=== PATIENT | female | born 1985 | race Caucasian/White ===

== ENCOUNTER → 2019-01-29 14:38 | Outpatient (CLI) | payer BC, SELFPAY ==
--- NOTE | 2019-01-29 | DI.US.S_ITS ---
ULTRASOUND OF LEFT BREAST: 01/29/2019 CLINICAL: Palpable left breast lump by physician. Comparison is made to exam dated: 01/29/2019 [facility]. Real-time ultrasound of the left breast was performed. Amanda scale images of the real-time examination were reviewed. No significant abnormalities were seen sonographically in the left breast. IMPRESSION: NEGATIVE There is no sonographic evidence of malignancy. There are no abnormalities seen in the left breast to correspond with the areas of clinical concern and palpable abnormalities at 3 o'clock and 9 o'clock which likely represent normal fibroglandular tissue, however, clinical followup is recommended for persistent symptoms. Recommend starting screening mammography at age 40. This exam was interpreted at Station ID: [id number]. Electronically Signed By: Omid Hawkins M.D. aty/:01/31/2019 08:00:12 Ultrasound BI-RADS: 1 Negative
--- NOTE | 2019-01-29 | DI.US.S_ITS ---
ULTRASOUND OF RIGHT BREAST: 01/29/2019 CLINICAL: Palpable right breast lump by physician. Comparison is made to exam dated: 01/29/2019 [facility]. Real-time ultrasound of the right breast was performed. Amanda scale images of the real-time examination were reviewed. No significant abnormalities were seen sonographically in the right breast. IMPRESSION: NEGATIVE There is no sonographic evidence of malignancy. There are no abnormalities seen in the right breast to correspond with the areas of clinical concern and palpable abnormalities at 3 o'clock and 9 o'clock which is consistent with normal fibroglandular tissue, however, clinical followup is recommended for persistent symptoms. Recommend starting screening mammograms at age 40. This exam was interpreted at Station ID: [id number]. Electronically Signed By: Omid Hawkins M.D. aty/:01/31/2019 07:59:45 Ultrasound BI-RADS: 1 Negative
--- NOTE | 2019-01-29 | DI.MG.S_ITS ---
BILATERAL DIGITAL DIAGNOSTIC MAMMOGRAM 3D/2D: 01/29/2019 CLINICAL: Bilateral lumps. Baseline exam. No prior exams were available for comparison. The tissue of both breasts is heterogeneously dense. This may lower the sensitivity of mammography. No significant masses, calcifications, or other findings are seen in either breast. IMPRESSION: INCOMPLETE: NEEDS ADDITIONAL IMAGING EVALUATION There is no abnormality seen in the right breast to correspond with the area of clinical concern and palpable abnormality at 3 o'clock, however, ultrasound is recommended for further evaluation. There is no abnormality seen in the left breast to correspond with the area of clinical concern and palpable abnormality at 9 o'clock, however, ultrasound is recommended for further evaluation. The recommended ultrasound is scheduled to immediately follow this examination. This exam was interpreted at Station ID: [id number]. NOTE: For mammograms, a report in lay terms will be sent to the patient. Approximately 15% of breast malignancies will not be visualized mammographically. In the management of a palpable breast mass, a negative mammogram must not discourage biopsy of a clinically suspicious lesion. Electronically Signed By: Omid Hawkins M.D. aty/:01/29/2019 15:21:59 ACR BI-RADS Category 0: Incomplete 3340F
== END ==
PROVIDERS: Family Provider Family Medicine; PCP Family Medicine; Visit Provider Internal Medicine
DX: R92.8 Other abnormal and inconclusive findings on diagnostic imaging of breast (principal); N63.15 Unspecified lump in the right breast, overlapping quadrants; N63.25 Unspecified lump in the left breast, overlapping quadrants
CPT/HCPCS: 76642; 77066; G0279

== ENCOUNTER 2022-05-08 10:08 | Emergency (ER) | payer BC, SELFPAY ==
[2022-05-08 10:21] VITALS: BP 138/71; PULSE 94; RESP 17; TEMP 36.6; O2SAT 98; BMI 32.4
--- NOTE | 2022-05-08 10:35 | ED.WOUNDLAC ---
HPI - Wound/Laceration General Chief Complaint: Wound/Laceration Stated Complaint: infected hair follicle on upper lt leg Time Seen by Provider: 05/08/22 10:25 Source: patient Mode of arrival: Ambulatory Limitations: no limitations History of Present Illness HPI narrative: 36-year-old female who has had multiple issues with abscesses in the past requiring drainage who is here for evaluation of approximately 1 week of 2 abscesses on the posterior aspect of her left thigh. She has been on antibiotics since yesterday morning. Is on doxycycline and also Keflex. She states she was re-evaluated by a doctor friend of hers earlier in the day who advised that she come to the emergency department for a drainage. Related Data Home Medications Medication Instructions Recorded Confirmed bupropion HCl 150 mg tablet,12 hr 150 mg PO BID 05/08/22 05/08/22 sustained-release cephalexin 500 mg capsule 500 mg PO DAILY 05/08/22 05/08/22 dextroamphetamine-amphetamine ER 30 mg PO DAILY 05/08/22 05/08/22 30 mg 24hr capsule,extend release (Adderall XR) doxycycline hyclate 100 mg capsule 100 mg PO DAILY 05/08/22 05/08/22 escitalopram oxalate 20 mg tablet 20 mg PO DAILY 05/08/22 05/08/22 Allergies Allergy/AdvReac Type Severity Reaction Status Date / Time No Known Allergies Allergy Uncoded 05/08/22 10:25 Review of Systems Musculoskeletal Musculoskeletal: Reports system reviewed and no additional complaints, except as documented Integumentary/Breasts Skin/Breast: Reports system reviewed and no additional complaints, except as documented Neurologic Neurologic: Reports system reviewed and no additional complaints, except as documented Patient History Social History Smoking Status: Never smoker Smoking Status: Never smoker alcohol intake frequency: other Substance Use Type: does not use Exam Initial Vital Signs Initial Vital Signs: Vital Signs Temperature 97.8 F 05/08/22 10:21 Pulse Rate 94 H 05/08/22 10:21 Respiratory Rate 17 05/08/22 10:21 Blood Pressure 138/71 05/08/22 10:21 Pulse Oximetry 98 05/08/22 10:21 Oxygen Delivery Method Room Air 05/08/22 10:21 Skin Other: One area of induration on the superior lateral aspect of the left posterior thigh. Proximally 4 cm with erythema and a small underlying area of ulceration in the center. She has a larger area that is approximately 20 cm x 20 cm of induration and swelling with a larger 1.5 x 1.5 area of ulceration in the center this. There is drainage from the area. Extrem Other: Swelling posterior aspect of left thigh Procedures Abscess I/D I&D #1: Site: lower extremity Side (if applicable): left Local Anesthetic: lidocaine 1% and with epi Amount of anesthesia used (mL): 5 Technique: incised with #11 blade Irrigation: No Packing used?: none Complications: pain Course Vital Signs Vital signs: Vital Signs - 8 hr 05/08/22 10:21 Temperature 97.8 F Pulse Rate 94 H Respiratory Rate 17 Blood Pressure 138/71 Pulse Oximetry 98 Oxygen Delivery Method Room Air MDM - Wound/Laceration MDM Narrative Medical decision making narrative: Bedside ultrasound showed a very small pocket of abscess on the larger of the 2 abscesses. The patient states that it has been draining. An incision was made to open this up further so that will not closed. A very small amount of purulent material returned. The other area in question did not have a underlying abscess but definitely had an area of cellulitis. Patient is on appropriate antibiotics. She was given care instructions and return precautions. She expressed understanding and agreement. Discharge Plan Departure Patient Disposition: Home Clinical Impression: Abscess, Cellulitis Instructions: Incision and Drainage of a Skin Abscess Activity Restrictions/Additional Instructions: Recommend that you continue to take all of your medications as directed to include the antibiotics that you have already been prescribed. Expect some drainage from the area that was cut open today. Return to the emergency department for any new or worsening symptoms like we discussed. Prescriptions: No Action bupropion HCl 150 mg tablet sustained-release 12 hr 150 mg PO BID Patient Comments: Take 1 tablet by mouth twice a day doxycycline hyclate 100 mg capsule 100 mg PO DAILY cephalexin 500 mg capsule 500 mg PO DAILY dextroamphetamine-amphetamine [Adderall XR] 30 mg capsule,extended release 24hr 30 mg PO DAILY Patient Comments: Take 1 capsule by mouth once a day escitalopram oxalate 20 mg tablet 20 mg PO DAILY Referrals: Trevor Fernando MD [Primary Care Provider] - Stand Alone Forms: Patient Portal/API
--- NOTE | 2022-05-08 11:16 | PC.NURSE ---
I&D performed by Dr. Velez
== END 2022-05-08 11:17 | disposition home or self-care (01) ==
PROVIDERS: Emergency Provider Emergency Medicine; Family Provider Family Medicine; PCP Family Medicine
DX: L02.416 Cutaneous abscess of left lower limb (principal); L03.116 Cellulitis of left lower limb
CPT/HCPCS: 10060; 99281; 99282

== ENCOUNTER 2022-06-25 23:35 | Emergency (ER) | payer OTHER, SELFPAY ==
[2022-06-25 23:40] VITALS: BP 129/79; PULSE 86; RESP 18; TEMP 37.2; O2SAT 99; BMI 32.4
--- NOTE | 2022-06-26 00:47 | ED.HEATRA ---
HPI - Head Injury General Chief complaint: Head Injury Stated complaint: Hit head on Sunday and swollen forehead Time Seen by Provider: 06/25/22 23:51 Source: patient Mode of arrival: Ambulatory History of Present Illness HPI Narrative: 37-year-old female nonsmoker with noncontributory medical history presents for evaluation of an infected wound on her forehead. She states that on Sunday night she was working in the garage when she struck her forehead on the corner of a metallic cabinet and suffered a small laceration. She did not lose consciousness and has had no nausea or vomiting. She is had no fever or chills. She denies any blurred vision or trouble with speech. Over the past few days she is developed some mild paraspinal neck pain but no midline tenderness. No radiation of pain into her upper extremities. No numbness, tingling or weakness. No chest pain or shortness of breath. She had a small amount of purulent drainage from the wound yesterday and over the course of the day today she developed some increased swelling between her eyebrows. She has friends that are in the healthcare field who saw and evaluated her and she has prescriptions for Bactrim and Keflex. She is taken 1 dose of Bactrim into of the Keflex. She consulted with her friends who stated because it looked a bit worse than had earlier that she should come to be checked out. Related Data Home Medications Medication Instructions Recorded Confirmed bupropion HCl 150 mg tablet,12 hr 150 mg PO BID 05/08/22 05/08/22 sustained-release cephalexin 500 mg capsule 500 mg PO DAILY 05/08/22 05/08/22 dextroamphetamine-amphetamine ER 30 mg PO DAILY 05/08/22 05/08/22 30 mg 24hr capsule,extend release (Adderall XR) doxycycline hyclate 100 mg capsule 100 mg PO DAILY 05/08/22 05/08/22 escitalopram oxalate 20 mg tablet 20 mg PO DAILY 05/08/22 05/08/22 Allergies Allergy/AdvReac Type Severity Reaction Status Date / Time No Known Allergies Allergy Uncoded 05/08/22 10:25 Review of Systems Review of Systems Narrative: GENERAL: Denies chills, fatigue, malaise, fever, sweats. HEENT: Denies sinus pain, ear pain, sore throat, difficulty swallowing, dizziness. RESPIRATORY: Denies dyspnea, cough, wheezing, hemoptysis, sputum. CARDIOVASCULAR: Denies chest pain, palpitations, orthopnea, edema, GASTROINTESTINAL: Denies nausea, vomiting, abdominal pain, diarrhea, constipation, melena. : Denies dysuria, frequency, incontinence, hematuria, urinary retention. MUSCULOSKELETAL: denies weakness, joint pain, or bony pain SKIN: See HPI NEUROLOGIC: Denies weakness, headache, numbness, change in speech, confusion, seizures, incoordination. PSYCHIATRIC: No concerning psychosocial issues. 12 point review of systems is negative except for those stated above Patient History Social History Smoking Status: Never smoker Smoking Status: Never smoker alcohol intake frequency: other Substance Use Type: does not use Exam Narrative Exam Narrative: GENERAL: [37] year old patient appears stated age. Well-developed patient, in mild distress. GCS 15 HEAD: Small scab in her central forehead between her eyebrows with a 1 x 2 cm area of erythema and tenderness without underlying fluctuance or induration. There is a larger area of swelling a bit superior on her forehead that is without erythema, fluctuance or induration and is minimally tender, most consistent with serous fluid as opposed to hematoma or abscess. There is no evidence of depressed skull fracture. EYES: Pupils equal round and reactive. Extraocular motions intact. No scleral icterus. No injection or drainage. ENT: Nose without bleeding, purulent drainage. Throat without erythema, tonsillar hypertrophy or exudate. Airway patent. NECK: Trachea midline. No midline bony tenderness, step-offs or crepitance. She does have minimal tenderness in the paraspinal musculature CARDIOVASCULAR: Regular rate and rhythm without murmurs, gallops, or rubs. RESPIRATORY: Clear to auscultation. Breath sounds equal bilaterally. No wheezes, rales, or rhonchi. GASTROINTESTINAL: Abdomen soft, non-tender, nondistended. EXTREMITIES: No edema or joint tenderness. BACK: Nontender without deformity or crepitance. No flank tenderness. NEURO: AOx3. SKIN: No rash or erythema of visible areas Initial Vital Signs Initial Vital Signs: Vital Signs Temperature 98.9 F 06/25/22 23:40 Pulse Rate 86 06/25/22 23:40 Respiratory Rate 18 06/25/22 23:40 Blood Pressure 129/79 06/25/22 23:40 Pulse Oximetry 99 06/25/22 23:40 Oxygen Delivery Method Room Air 06/25/22 23:40 Course Orders Ordered: Discontinued Medications Cyclobenzaprine HCl (Cyclobenzaprine 10 Mg Prepack) 1 bottle MISC SEEINSTR ONE Stop: 06/26/22 01:22 Last Admin: 06/26/22 01:31 Dose: 1 bottle Documented By: SUNSHINE Vital Signs Vital signs: Vital Signs - 8 hr 06/25/22 23:40 06/26/22 01:32 Temperature 98.9 F 97.8 F Pulse Rate 86 70 Respiratory Rate 18 16 Blood Pressure 129/79 122/74 Pulse Oximetry 99 99 Oxygen Delivery Method Room Air Room Air MDM - Head Injury MDM Narrative Medical decision making narrative: [37] year old patient presents with forehead wound Multiple etiologies for patient's symptoms considered including, but not limited to: [Cellulitis versus abscess versus other] Prior Charts reviewed in our EMR Primary Historian: patient Patient history and physical exam are reassuring and though the swelling has slightly worsened the area of erythema and warmth has not changed and there is no fluctuance or induration. We discussed that it is likely not a failure of the antibiotics as much as 2 short duration to experience improvement thus far. We agree that changing the antibiotics is not indicated. Furthermore she has no systemic complaints such as fever, chills nor nausea or vomiting. She has no altered mental status. We did discuss the possible utility of imaging but elected to hold off for now has the clinical suspicion is low there is any underlying abscess, foreign body and certainly I low likelihood of any intracranial involvement. Return precautions were discussed and questions answered to her apparent satisfaction Findings and discharge diagnosis discussed with patient/family followed by verbalization of understanding Return precautions discussed with patient/family whom verbalize understanding of diagnosis and plan Discharge Plan Departure Patient Disposition: Home Clinical Impression: Cellulitis of forehead Instructions: DI for Cellulitis -- Adult Activity Restrictions/Additional Instructions: *You have been diagnosed with [forehead cellulitis] *What to do: *Please continue to take your regular medications as directed. *Please follow up with your primary care provider in 2-3 days, call for an appointment. Let them know you were seen in the Emergency Department and that we ask that you be seen in follow up. We will electronically transmit a record of today's note if your PCP is in our system *Return to Emergency Department if you should have any new, worsening or concerning symptoms, such as [fever greater than 101 F, shaking chills, worsening pain, persistent vomiting or other bothersome symptoms] Prescriptions: No Action bupropion HCl 150 mg tablet sustained-release 12 hr 150 mg PO BID Patient Comments: Take 1 tablet by mouth twice a day doxycycline hyclate 100 mg capsule 100 mg PO DAILY cephalexin 500 mg capsule 500 mg PO DAILY dextroamphetamine-amphetamine [Adderall XR] 30 mg capsule,extended release 24hr 30 mg PO DAILY Patient Comments: Take 1 capsule by mouth once a day escitalopram oxalate 20 mg tablet 20 mg PO DAILY Referrals: Trevor Fernando MD [Primary Care Provider] - Stand Alone Forms: Patient Portal/API
[2022-06-26] MEDS: CYCLOBENZAPRINE 10 MG PREPACK 1 BOTTLE MISC (01:31)
[2022-06-26 01:32] VITALS: BP 122/74; PULSE 70; RESP 16; TEMP 36.6; O2SAT 99
== END 2022-06-26 01:33 | disposition home or self-care (01) ==
PROVIDERS: Emergency Provider Emergency Medicine; Family Provider Family Medicine; PCP Family Medicine
DX: L03.211 Cellulitis of face (principal)
CPT/HCPCS: 99281

== ENCOUNTER → 2022-08-01 10:00 | Outpatient (CLI) | payer OTHER, SELFPAY ==
--- NOTE | 2022-08-01 10:18 | DI.US.S_ITS ---
PROCEDURE: US SOFT TISSUE HEAD AND NECK INDICATIONS: LT CHEEK SWOLLEN/REDNESS. POST INGROWN HAIR REMOVAL AT [facility] [place] TECHNIQUE: Real-time scanning was performed of the neck region of interest, with image documentation. COMPARISON: None. FINDINGS: Focused ultrasound examination of left cheek soft tissue shows significant subcutaneous soft tissue edema. There is ill-defined heterogeneously hypoechoic area within subcutaneous soft tissue measures up to 2.4 x 1.5 x 2 cm in size . Questionable area of internal vascularity is seen. No peripheral hyperemia is noted. There is suggestion of a small tract extending to the skin surface is noted. IMPRESSION: Significant cellulitis in left cheek soft tissue with 2.4 x 1.5 x 2 cm heterogeneously hypoechoic area within subcutaneous soft tissue and minimal amount of internal vascularity. Trace amount of fluid is seen in superficial portion of this area. No discrete drainable fluid collection is identified. Possible tract extending to skin surface. Finding is concerning for organizing hematoma. Infected collection cannot be entirely excluded. Clinical correlation and follow-up is recommended. Dictated by: Forrest Ramesh M.D. on 08/01/2022 at 11:30 Approved by: Forrest Ramesh M.D. on 08/01/2022 at 11:33
[2022-08-01 11:08] LABS: Hematocrit 40.3 % (36-46); Hemoglobin 13.5 g/dL (12.0-16.0); Mean Corpuscular HGB Conc 33.5 % (30-36); Mean Corpuscular Hemoglobin 30.8 PG (26-34); Mean Corpuscular Volume 92.1 fL (80-100); Platelet Count 174 X10^3/uL (150-400); Red Blood Cell Count 4.37 X10^6/uL (4.0-5.2); Red Cell Distribution Width 13.8 % (11.6-14.8); White Blood Cell Count 11.9 X10^3/uL (4.5-11.0)
[2022-08-01 11:39] LABS: BUN Creatinine Ratio 19.3 (6-22); Blood Urea Nitrogen 17 mg/dL (7-17); Calcium 8.9 mg/dL (8.4-10.2); Carbon Dioxide 27 mmol/L (22-32); Chloride 103 mmol/L (98-107); Estimated Glomerular Filt Rate > 60 mL/min (>60); Glucose 126 mg/dL (70-100); HEMOLYSIS < 15 (0-50); Potassium 4.4 mmol/L (3.4-5.1); Sodium 139 mmol/L (137-145)
[2022-08-01 12:09] LABS: Neutrophils Absolute Manual 9520 /uL (3000-5900); RBC Morphology Normal Morphology; Total Cells Counted 100
[2022-08-01 14:07] LABS: Add Manual Diff / Slide Review NO; Basophils Absolute Auto 0 /uL (0-100); Basophils Percent Auto 0.3 % (0-2); Eosinophils Absolute Auto 0 /uL (0-450); Eosinophils Percent Auto 0.3 % (2-4); Hematocrit 39.5 % (36-46); Hemoglobin 13.5 g/dL (12.0-16.0); Lymphocytes Absolute Auto 1300 /uL (1100-4500); Lymphocytes Percent Auto 12.1 % (25-40); Mean Corpuscular HGB Conc 34.2 % (30-36); Mean Corpuscular Hemoglobin 31.2 PG (26-34); Mean Corpuscular Volume 91.1 fL (80-100); Monocytes Absolute Auto 600 /uL (0-900); Monocytes Percent Auto 5.5 % (3-14); Neutrophils Absolute Auto 8700 /uL (1500-7000); Neutrophils Percent Auto 81.8 % (50-75); Platelet Count 167 X10^3/uL (150-400); Red Blood Cell Count 4.33 X10^6/uL (4.0-5.2); Red Cell Distribution Width 13.3 % (11.6-14.8); White Blood Cell Count 10.6 X10^3/uL (4.5-11.0)
[2022-08-01 14:19] LABS: C-Reactive Protein Quant 1.9 mg/dL (<1.0)
[2022-08-01 14:40] LABS: Erythrocyte Sedimentation Rate 16 MM/HR (0-20)
== END ==
PROVIDERS: Family Provider Family Medicine; PCP Family Medicine; Referring Provider Nurse Practitioner Family; Visit Provider Nurse Practitioner Family
DX: L03.211 Cellulitis of face (principal); R22.0 Localized swelling, mass and lump, head
CPT/HCPCS: 36415; 76536; 80048; 85025; 85651; 86140

== ENCOUNTER 2022-08-03 07:20 | Inpatient (IN) | payer OTHER, SELFPAY ==
[2022-08-03] VITALS (14 sets, daily range): BP systolic 105–125; BP diastolic 51–75; PULSE 77–93; RESP 17–18; TEMP 36.1–37.5; O2SAT 96–99; BMI 37.7
--- NOTE | 2022-08-03 07:29 | ED_ITS ---
HPI - General Adult General Chief complaint: Skin/Abscess/Foreign Body Stated complaint: infection in left side of mouth swollen Time Seen by Provider: 08/03/22 07:29 Source: patient, RN notes reviewed and old records reviewed Mode of arrival: Ambulatory Limitations: no limitations History of Present Illness HPI narrative: This is a 37-year-old female with history of mood disorder and ADHD with complaint of abscess/cellulitis of the left cheek. Patient states that she had the mole left side of her cheek that she will once a year get an ingrown and will sterilized needle with heat and alcohol and extract it. She states she did this recently started having swelling of left side of her face x2 days. Patient states she was seen at the walk-in clinic started on Augmentin, it continued to worsen and after 2 days was seen again and started on Bactrim stopping the Augmentin. Continued to worsen and yesterday was seen with Dr. Fernando and started on Rocephin 2 g IM. She has stopped the Bactrim at their rec ommendation. She denies fevers or chills. She states swelling is continuing to worsened. She is been able to drink liquids and soft foods but nothing hard or chewing. She states it does not feel like it is moving back into her airway, underneath her tongue although she noted last night lying down was a little bit difficult. Patient states quite painful. She is been taking Tylenol ibuprofen around the clock and took a dose of Percocet this morning. Patient denies any other chest pain or shortness of breath. She is feeling a little nauseated this morning. She feels a little dizzy during our discussion but states that just started. She denies any diarrhea or constipation. No other urinary symptoms. No known drug allergies. No tobacco, occasional alcohol, no illicit. Patient states she is had skin infections in the past but not this bad. Related Data Home Medications Medication Instructions Recorded Confirmed bupropion HCl 150 mg tablet,12 hr 150 mg PO BID 05/08/22 08/03/22 sustained-release dextroamphetamine-amphetamine ER 30 mg PO DAILY 05/08/22 08/03/22 30 mg 24hr capsule,extend release (Adderall XR) escitalopram oxalate 20 mg tablet 40 mg PO DAILY 05/08/22 08/03/22 trazodone 50 mg tablet mg 08/03/22 Previous Rx's Medication Instructions Recorded prednisone 5 mg tablet See Rx Instructions PO .COMPLEX 06/27/22 #36 tabs sulfamethoxazole 800 1 tab PO BID #10 tabs 08/01/22 mg-trimethoprim 160 mg tablet Allergies Allergy/AdvReac Type Severity Reaction Status Date / Time No Known Allergies Allergy Uncoded 08/01/22 09:28 Review of Systems Review of Systems ROS Unobtainable: All systems reviewed & are unremarkable except as noted in HPI and below Patient History Social History household members: family Smoking Status: Never smoker Smoking Status: Never smoker alcohol intake frequency: other Substance Use Type: does not use Exam Narrative Exam Narrative: GEN: Obese female alert and oriented x3, patient appears to be in [id number] distress. HEENT: Atraumatic, pupils are equal round reactive to light, extraocular movements are intact, nares are clear. Throat is clear without any exudates, erythema, tonsillar enlargement or uvular deviation, patient has significant swelling of the left cheek with fluctuance, erythema taking up the entire left cheek there is some slight swelling down into the neck. No palpable mass submandibular. Patient's speech is clear with no hoarseness or stridor. No difficulty swallowing secretions. HEART: Regular rate and rhythm without murmur, clicks, rubs. LUNGS:Lungs clear to auscultation, no wheezes, rales, crackles, chest moves symmetrically ABD:bowel sounds normal, soft, non-tender, no guarding, rebound, rigidity, no masses noted, no hepatosplenomegaly MSCL: Non-tender, no muscle atrophy, muscles strength 5/5 upper and lower extremities, full range of motion, normal gait NEURO:CN 2-12 intact, sensation normal. Initial Vital Signs Initial Vital Signs: Vital Signs Pulse Rate 92 H 08/03/22 07:28 Pulse Oximetry 98 08/03/22 07:28 Procedures Abscess I/D I&D #1: Site: face (Left cheek) Sedation/analgesia: none Local Anesthetic: lidocaine 2% Amount of anesthesia used (mL): 6 Technique: needle aspiration and incised with #11 blade Amount of fluid expressed (mL): 30 Irrigation: Yes Packing used?: iodoform Course Orders Ordered: ED Orders 08/03/22 07:37 Blood Culture Stat Complete Blood Count AUTO DIFF Stat Comprehensive Metabolic Panel Stat Lactate (Lactic Acid) Stat Procalcitonin Stat 08/03/22 07:44 CT soft tissue neck w con Stat Acetaminophen (Acetaminophen 325 Mg Tablet) 650 mg PO Q6H PRN PRN Reason: Fever/Mild Pain (1-3) Hydrocodone Bitart/Acetaminophen (Hydrocodone/Acet 5/325 Tablet) 1 tab PO Q4H PRN PRN Reason: Pain, Moderate (4-6) Bupropion HCl (Bupropion Sr 150 Mg Tab) 150 mg PO BID [facility] Enoxaparin Sodium (Enoxaparin 40 Mg/0.4 Ml Syringe) 40 mg SUBCUT DAILY [facility] Escitalopram Oxalate (Escitalopram 10 Mg Tablet) 40 mg PO DAILY [facility] Ibuprofen (Ibuprofen 600 Mg Tablet) 600 mg PO Q6H PRN PRN Reason: Fever/Mild Pain (1-3) Naloxone HCl (Naloxone 0.4 Mg/Ml Vial) 0.2 mg IV Q2MIN PRN PRN Reason: Opiate Reversal Dextroamphetamine- Amphetamine [ Adderall Xr] 30 Mg Capsule Er 30 mg PO DAILY [facility] Oxycodone HCl (Oxycodone Ir 10 Mg Tablet) 10 mg PO Q3H PRN PRN Reason: Pain, Severe (7-10) Trazodone HCl (Trazodone 50 Mg Tablet) 50 mg PO BEDTIME LILIAN Discontinued Medications Diphtheria/Tetanus/Acell Pertussis (Tet,Diph,Pertuss(Acell),Vac/Pf 0.5 Ml Syringe) 0.5 ml IM .ONCE ONE Stop: 08/03/22 08:51 Last Admin: 08/03/22 08:55 Dose: 0.5 ml Documented By: PASCUAL Sodium Chloride (Normal Saline 0.9%) 1,710 mls @ 570 mls/hr 30 ml/kg infuse over 3 hr (1710 ml) IV NOW ONE Stop: 08/03/22 10:43 Last Infusion: 08/03/22 10:38 Dose: 0 mls/hr Documented By: Admin: 08/03/22 08:25 Dose: 570 mls/hr Documented By: RB Piperacillin Sod/Tazobactam (Sod 4.5 gm/ Sodium Chloride) 100 mls @ 200 mls/hr IV NOW ONE Stop: 08/03/22 07:45 Last Infusion: 08/03/22 08:58 Dose: 0 mls/hr Documented By: Admin: 08/03/22 08:24 Dose: 200 mls/hr Documented By: RB Vancomycin HCl/Dextrose (Vancomycin) 1,500 mg in 300 mls @ 200 mls/hr IV NOW ONE Stop: 08/03/22 09:15 Last Infusion: 08/03/22 10:38 Dose: 0 mls/hr Documented By: Admin: 08/03/22 08:46 Dose: 200 mls/hr Documented By: RB Ketorolac Tromethamine (Ketorolac 30 Mg/Ml Vial) 15 mg IV NOW ONE Stop: 08/03/22 07:45 Last Admin: 08/03/22 08:23 Dose: 15 mg Documented By: RB Lidocaine HCl (Lidocaine 2% Inj Sdv 5ml) 5 ml INJ INTRA-OP ONE Stop: 08/03/22 09:36 Last Admin: 08/03/22 09:41 Dose: 5 ml Documented By: RB Morphine Sulfate (Morphine 4 Mg/Ml Inj) 4 mg IV NOW ONE Stop: 08/03/22 10:37 Last Admin: 08/03/22 10:59 Dose: 4 mg Documented By: CAROLANN Ondansetron HCl (Ondansetron 4 Mg/2 Ml Inj) 4 mg IV NOW ONE Stop: 08/03/22 07:45 Last Admin: 08/03/22 08:24 Dose: 4 mg Documented By: RB Vital Signs Vital signs: Vital Signs - 8 hr 08/03/22 07:32 08/03/22 07:28 08/03/22 07:30 Temperature 99.5 F Pulse Rate 93 H 92 H Respiratory Rate 17 Blood Pressure 125/75 125/75 Pulse Oximetry 97 98 Oxygen Delivery Method Room Air 08/03/22 07:30 08/03/22 08:19 08/03/22 08:21 Temperature Pulse Rate 91 H 87 87 Respiratory Rate Blood Pressure Pulse Oximetry 99 98 97 Oxygen Delivery Method 08/03/22 08:21 08/03/22 08:30 08/03/22 08:30 Temperature Pulse Rate 85 Respiratory Rate Blood Pressure 121/59 L 113/65 Pulse Oximetry 98 Oxygen Delivery Method 08/03/22 08:45 08/03/22 08:45 08/03/22 09:00 Temperature Pulse Rate 88 Respiratory Rate Blood Pressure 113/62 117/60 Pulse Oximetry 97 Oxygen Delivery Method 08/03/22 09:00 08/03/22 09:15 08/03/22 09:15 Temperature Pulse Rate 85 89 Respiratory Rate Blood Pressure 111/57 L Pulse Oximetry 97 98 Oxygen Delivery Method Medical Decision Making Lab Data 08/03/22 07:37 08/03/22 07:37 Labs: Lab Results 08/03/22 08/03/22 08/03/22 Range/Units 07:37 07:37 07:37 WBC 9.6 (4.5-11.0) X10^3/uL RBC 4.35 (4.0-5.2) X10^6/uL Hgb 13.5 (12.0-16.0) g/dL Hct 39.3 (36-46) % MCV 90.3 (80-100) fL MCH 31.1 (26-34) PG MCHC 34.4 (30-36) % RDW 13.3 (11.6-14.8) % Plt Count 162 (150-400) X10^3/uL Neut % (Auto) 76.4 H (50-75) % Lymph % (Auto) 14.5 L (25-40) % [place] % (Auto) 7.7 (3-14) % Eos % (Auto) 1.1 L (2-4) % Baso % (Auto) 0.3 (0-2) % Neut # (Auto) 7300 H (9576-4538) /uL Lymph # (Auto) 1400 (3420-5732) /uL [place] # (Auto) 700 (0-900) /uL Eos # (Auto) 100 (0-450) /uL Baso # (Auto) 0 (0-100) /uL Sodium 135 L (137-145) mmol/L Potassium 4.2 (3.4-5.1) mmol/L Chloride 100 (98-107) mmol/L Carbon Dioxide 29 (22-32) mmol/L BUN 15 (7-17) mg/dL Creatinine 0.92 (0.52-1.04) mg/dL Estimated GFR > 60 (>60) mL/min BUN/Creatinine Ratio 16.3 (6-22) Glucose 103 H (70-100) mg/dL Lactate 0.6 L (0.7-2.1) mmol/L Calcium 8.9 (8.4-10.2) mg/dL Total Bilirubin 0.4 (0.2-1.3) mg/dL AST 15 (14-36) IU/L ALT 22 (<35) IU/L Alkaline Phosphatase 61 (38-126) U/L Total Protein 6.5 (6.3-8.2) g/dL Albumin 3.9 (3.5-5.0) g/dL Globulin 2.6 (1.7-4.1) g/dL Albumin/Globulin Ratio 1.5 (1.0-2.8) Procalcitonin 0.05 (<0.5) ng/mL Point of Care Testing Test Results Negative Urine Dip Bedside Urine Glucose Negative Bedside Urine Bilirubin - Negative Bedside Urine Ketone - Negative Urine Specific [place] 1.010 Bedside Urine Occult Blood - Negative Bedside Urine pH 6.5 Bedside Urine Protein - Negative Bedside Urine Urobilinogen - Negative Bedside Urine Nitrite - Negative Bedside Urine Leukocytes - Negative Esterase Point of care testing: Point of Care Testing Test Results Negative Urine Dip Bedside Urine Glucose Negative Bedside Urine Bilirubin - Negative Bedside Urine Ketone - Negative Urine Specific [place] 1.010 Bedside Urine Occult Blood - Negative Bedside Urine pH 6.5 Bedside Urine Protein - Negative Bedside Urine Urobilinogen - Negative Bedside Urine Nitrite - Negative Bedside Urine Leukocytes - Negative Esterase Imaging Data CT soft tissue face/neck: Radiologist's Impression: Close Soft Tissue Neck CT (Signed) Forrest Ramesh - 08/03/22 Head/Neck Ultrasound (Signed) Forrest Ramesh - 08/01/22 Mammogram Diagnostic (Signed) Omid Hawkins - 01/29/19 Breast Ultrasound (Signed) Omid Hawkins - 01/29/19 Breast Ultrasound (Signed) Omid Hawkins - 01/29/19 Launch?[address] [address] [address] Scan Report Signed Patient: Angeli Leigh MR#: [id number] : 1985 Acct:[id number] Age/Sex: 37 / F Date of Service: 08/03/22 Loc: Accession Number: [id number] ?? Procedure: CT soft tissue neck w con Ordering Provider: Kanchan Mayorga D.O. PROCEDURE:? CT SOFT TISSUE NECK W CON ? INDICATIONS:? large abscess/cellulitis left cheek ? TECHNIQUE:? After the administration of intravenous contrast, 3.0 mm axial sections acquired from the sella to the aortic arch.? Additional oblique axial 3.0 mm sections acquired through the pharynx.? 3 mm thick coronal and sagittal reformats were generated.? For radiation dose reduction, the following was used:? automated exposure control.? ? COMPARISON:[facility], , SOFT TISSUE HEAD AND NECK, 08/01/2022, 10:24. ? FINDINGS:? Image quality:? Diagnostic.? Significant beam hardening artifacts from dental fillings are noted. ? Lymph nodes:? Prominent left neck soft tissue lymph nodes are seen measures up to 1 cm in left carotid space and 9 mm in size in left submandibular space. ? Vessels:? Visualized vasculature appears patent.? ? Neck spaces:? The oropharynx, nasopharynx, and pharynx demonstrate no mucosal l esions.? The vocal cords, false vocal cords, pyriform sinuses, epiglottis, vallecula, and tongue base all appear normal.? Extramucosal spaces appear unremarkable.? ? Glands:? The parotid and submandibular glands appear normal.? Thyroid gland is within normal limits. ? Miscellaneous:? Significant subcutaneous soft tissue edema and swelling over left anterolateral mandible and maxilla anterior to the left masseter muscle.? Ill- defined mixed solid and cystic area within subcutaneous soft tissue with overlying skin thickening is seen and measures in aggregate 3.4 x 3 x 3.4 cm in size.? There is possible involvement of left anterior masseter muscle concerning for myositis.? No drainable intramuscular fluid collection.? Visualized brain and orbits appear normal.? Lung apices appear clear. ? Bones:? No suspicious bony lesions.? Visualized sinuses and mastoids appear unremarkable. ? ? ? IMPRESSION:? 1. Significant left facial cellulitis with suggestion of mixed density collection in left facial soft tissue along anterolateral aspects of left maxilla and left mandible as described above.? This is consistent with ultrasound appearance and show no discrete drainable fluid collection. ? 2. Suggestion of myositis involving anterior aspect of left masseter muscle.? No discrete intramuscular fluid collection. ? 3. No CT evidence of osteomyelitis.? No facial bone fracture or dislocation. ? 4. Enlarged left neck soft tissue lymph nodes suggestive of reactive inflammatory nodes. ? 5.? The airway is patent.? Dictated by: Forrest Ramesh M.D. on 08/03/2022 at 8:13 ? ? Approved by: Forrest Ramesh M.D. on 08/03/2022 at 8:27?? [facility] Narrative Medical decision making narrative: This is a 37-year-old female with significant swelling and what appears to be abscess of the left cheek. Patient has been on 2 rounds of antibiotics with worsening changes including Augmentin and Bactrim she received a dose of 2 g of Rocephin yesterday in the clinic with her primary care provider. She has progression of her infection on pictures in her phone and has swelled significantly over the past week. Patient's airway appears intact at this time. Heart rates 93 otherwise vitals are appropriate. She is feeling a little dizzy and nauseated this morning. Was given fluids, antibiotics, CT soft tissue neck/face to more fully evaluate the depth and involvement of what appears to be a large abscess of the face. Spoke with Dr. Rendon, patient felt appropriate for admission with 2 rounds of antibiotics which she has failed. Discussed I and D here in the emergency department with Dr. Dayne Blanc with ENT. He notes there will be some delay hopefully will see her later this evening versus 1st thing in the morning. He felt comfortable having me perform I&D in the department if patient was agreeable. On bedside ultrasound patient appeared to have quite a bit of fluid although somewhat loculated discussed likely would not be able to drain it completely here in the emergency department. Patient had large amount purulent material. A small amount of packing was placed to keep the wound open. She was still quite uncomfortable afterwards was given additional dose of pain medications. She has otherwise been stable throughout her stay, no airway involvement appreciated. Patient was seen by Dr. Rendon in the department prior to I&D, admitted for facial cellulitis with abscess failed outpatient antibiotics x 3. Discharge Plan Departure Patient Disposition: Admitted As Inpatient Clinical Impression: Cellulitis and abscess of face Admit Date/Time: 08/03/22 09:28 Admit Provider: Gary Rendon
--- NOTE | 2022-08-03 07:44 | DI.CT.S_ITS ---
PROCEDURE: CT SOFT TISSUE NECK W CON INDICATIONS: large abscess/cellulitis left cheek TECHNIQUE: After the administration of intravenous contrast, 3.0 mm axial sections acquired from the sella to the aortic arch. Additional oblique axial 3.0 mm sections acquired through the pharynx. 3 mm thick coronal and sagittal reformats were generated. For radiation dose reduction, the following was used: automated exposure control. COMPARISON: [facility], SOFT TISSUE HEAD AND NECK, 08/01/2022, 10:24. FINDINGS: Image quality: Diagnostic. Significant beam hardening artifacts from dental fillings are noted. Lymph nodes: Prominent left neck soft tissue lymph nodes are seen measures up to 1 cm in left carotid space and 9 mm in size in left submandibular space. Vessels: Visualized vasculature appears patent. Neck spaces: The oropharynx, nasopharynx, and pharynx demonstrate no mucosal lesions. The vocal cords, false vocal cords, pyriform sinuses, epiglottis, vallecula, and tongue base all appear normal. Extramucosal spaces appear unremarkable. Glands: The parotid and submandibular glands appear normal. Thyroid gland is within normal limits. Miscellaneous: Significant subcutaneous soft tissue edema and swelling over left anterolateral mandible and maxilla anterior to the left masseter muscle. Ill-defined mixed solid and cystic area within subcutaneous soft tissue with overlying skin thickening is seen and measures in aggregate 3.4 x 3 x 3.4 cm in size. There is possible involvement of left anterior masseter muscle concerning for myositis. No drainable intramuscular fluid collection. Visualized brain and orbits appear normal. Lung apices appear clear. Bones: No suspicious bony lesions. Visualized sinuses and mastoids appear unremarkable. IMPRESSION: 1. Significant left facial cellulitis with suggestion of mixed density collection in left facial soft tissue along anterolateral aspects of left maxilla and left mandible as described above. This is consistent with ultrasound appearance and show no discrete drainable fluid collection. 2. Suggestion of myositis involving anterior aspect of left masseter muscle. No discrete intramuscular fluid collection. 3. No CT evidence of osteomyelitis. No facial bone fracture or dislocation. 4. Enlarged left neck soft tissue lymph nodes suggestive of reactive inflammatory nodes. 5. The airway is patent. Dictated by: Forrest Ramesh M.D. on 08/03/2022 at 8:13 Approved by: Forrest Ramesh M.D. on 08/03/2022 at 8:27
[2022-08-03 08:00] LABS: Add Manual Diff / Slide Review NO; Basophils Absolute Auto 0 /uL (0-100); Basophils Percent Auto 0.3 % (0-2); Eosinophils Absolute Auto 100 /uL (0-450); Eosinophils Percent Auto 1.1 % (2-4); Hematocrit 39.3 % (36-46); Hemoglobin 13.5 g/dL (12.0-16.0); Lymphocytes Absolute Auto 1400 /uL (1100-4500); Lymphocytes Percent Auto 14.5 % (25-40); Mean Corpuscular HGB Conc 34.4 % (30-36); Mean Corpuscular Hemoglobin 31.1 PG (26-34); Mean Corpuscular Volume 90.3 fL (80-100); Monocytes Absolute Auto 700 /uL (0-900); Monocytes Percent Auto 7.7 % (3-14); Neutrophils Absolute Auto 7300 /uL (1500-7000); Neutrophils Percent Auto 76.4 % (50-75); Platelet Count 162 X10^3/uL (150-400); Red Blood Cell Count 4.35 X10^6/uL (4.0-5.2); Red Cell Distribution Width 13.3 % (11.6-14.8); White Blood Cell Count 9.6 X10^3/uL (4.5-11.0)
[2022-08-03 08:04] LABS: Alanine Aminotransferase 22 IU/L (<35); Albumin 3.9 g/dL (3.5-5.0); Albumin Globulin Ratio 1.5 (1.0-2.8); Alkaline Phosphatase 61 U/L (38-126); Aspartate Aminotransferase 15 IU/L (14-36); BUN Creatinine Ratio 16.3 (6-22); Bilirubin Total 0.4 mg/dL (0.2-1.3); Blood Urea Nitrogen 15 mg/dL (7-17); Calcium 8.9 mg/dL (8.4-10.2); Carbon Dioxide 29 mmol/L (22-32); Chloride 100 mmol/L (98-107); Estimated Glomerular Filt Rate > 60 mL/min (>60); Globulin 2.6 g/dL (1.7-4.1); Glucose 103 mg/dL (70-100); HEMOLYSIS < 15 (0-50); Lactate (Lactic Acid) 0.6 mmol/L (0.7-2.1); Potassium 4.2 mmol/L (3.4-5.1); Sodium 135 mmol/L (137-145); Total Protein 6.5 g/dL (6.3-8.2)
[2022-08-03 08:19] LABS: Procalcitonin 0.05 ng/mL (<0.5)
[2022-08-03] MEDS: KETOROLAC 30 MG/ML VIAL 15 MG IV (08:23)
[2022-08-03] MEDS: PIPERACILLIN/TAZO 4.5 GM in SODIUM CHLORIDE 0.9% 100 ML IV (08:24)
[2022-08-03] MEDS: ONDANSETRON 4 MG/2 ML INJ IV (08:24)
[2022-08-03] MEDS: SODIUM CHLORIDE 0.9% 1,710 ML 570 ML IV (08:25)
[2022-08-03] MEDS: VANCOMYCIN 1,500 MG/300 ML PIGGYBACK 200 MG IV (08:46)
[2022-08-03] MEDS: TET,DIPH,PERTUSS(ACELL),VAC/PF 0.5 ML SYRINGE IM (08:55)
[2022-08-03] MEDS: LIDOCAINE 2% INJ SDV 5ML 5 ML INJ (09:41)
--- NOTE | 2022-08-03 10:39 | PC.NURSE ---
This RN gave report to Valarie Montemayor RN. Paused fluids intake for transport for the total of normal saline that was given in ED. Informed RN of the remaining to be administered.
[2022-08-03] MEDS: MORPHINE 4 MG/ML INJ IV (10:59)
--- NOTE | 2022-08-03 11:00 | P.HP_ITS ---
History of Present Illness History of Present Illness Date Patient Seen: 08/03/22 Time Patient Seen: 10:00 Date of Onset of Symptoms: 07/28/22 Chief complaint: infection in left side of mouth swollen Narrative: CC: Facial swelling Pt presents with acute L cheek cellulitis/ asbscess. Started last Sunday and has now failed treatment attempts with augmentin bactrim and rocephin - pain about 5/10 with ibuprofen/tylenols - discussed with Dr. Mayorga who will attempt a partial I&D today for comfort - will plan on ENT Dr. Blanc coming in tomorrow to take a look possibly place drain. Pt reports normal appetite normal breathing no airway issues. PFSH Social History Smoking Status: Never smoker Meds Home Medications and Allergies Home Medications Medication Instructions Recorded Confirmed Type bupropion HCl 150 mg tablet,12 hr 150 mg PO BID 05/08/22 08/01/22 History sustained-release dextroamphetamine-amphetamine ER 30 mg PO DAILY 05/08/22 08/01/22 History 30 mg 24hr capsule,extend release (Adderall XR) escitalopram oxalate 20 mg tablet 20 mg PO DAILY 05/08/22 08/01/22 History prednisone 5 mg tablet See Rx Instructions PO .COMPLEX 06/27/22 08/01/22 Rx #36 tabs amoxicillin 875 mg-potassium 1 tab PO BID 10 days #20 tabs 07/30/22 08/01/22 Rx clavulanate 125 mg tablet sulfamethoxazole 800 1 tab PO BID #10 tabs 08/01/22 08/01/22 Rx mg-trimethoprim 160 mg tablet Allergies Allergy/AdvReac Type Severity Reaction Status Date / Time No Known Allergies Allergy Uncoded 08/01/22 09:28 Review of Systems Review of Systems Narrative: all systems reviewed and negative except as otherwise documented in HPI Exam Vital Signs (past 8 hours): - 08/03/22 07:32 08/03/22 07:28 08/03/22 07:30 Temperature 99.5 F Pulse Rate 93 H 92 H Respiratory Rate 17 Blood Pressure 125/75 125/75 Pulse Oximetry 97 98 Oxygen Delivery Method Room Air 08/03/22 07:30 08/03/22 08:19 08/03/22 08:21 Temperature Pulse Rate 91 H 87 87 Respiratory Rate Blood Pressure Pulse Oximetry 99 98 97 Oxygen Delivery Method 08/03/22 08:21 08/03/22 08:30 08/03/22 08:30 Temperature Pulse Rate 85 Respiratory Rate Blood Pressure 121/59 L 113/65 Pulse Oximetry 98 Oxygen Delivery Method 08/03/22 08:45 08/03/22 08:45 08/03/22 09:00 Temperature Pulse Rate 88 Respiratory Rate Blood Pressure 113/62 117/60 Pulse Oximetry 97 Oxygen Delivery Method 08/03/22 09:00 08/03/22 09:15 08/03/22 09:15 Temperature Pulse Rate 85 89 Respiratory Rate Blood Pressure 111/57 L Pulse Oximetry 97 98 Oxygen Delivery Method 08/03/22 09:30 08/03/22 09:30 08/03/22 09:46 Temperature Pulse Rate 88 Respiratory Rate Blood Pressure 110/62 105/51 L Pulse Oximetry 96 Oxygen Delivery Method 08/03/22 09:46 08/03/22 10:30 Temperature Pulse Rate 86 87 Respiratory Rate 17 Blood Pressure 106/58 L Pulse Oximetry 97 97 Oxygen Delivery Method Room Air Oxygen Delivery Method Room Air Narrative Exam Narrative: alert sitting on gurney with family at bedside HENMT Other: L cheek grossly swollen erythematous with some weeping crust yellowish discharge - looks about baseball sized Resp Auscultation: clear to auscultation bilaterally Cardio Rate: regular rate Rhythm: regular rhythm Heart Sounds: S1 normal and S2 normal GI Auscultation: normal bowel sounds Neuro General: patient alert, patient awake and patient oriented x3 Extrem General: no pedal edema Objective Labs 08/03/22 07:37 08/03/22 07:37 Labs: Laboratory Results - last 24 hr 08/03/22 08/03/22 08/03/22 07:37 07:37 07:37 WBC 9.6 RBC 4.35 Hgb 13.5 Hct 39.3 MCV 90.3 MCH 31.1 MCHC 34.4 RDW 13.3 Plt Count 162 Neut % (Auto) 76.4 H Lymph % (Auto) 14.5 L [place] % (Auto) 7.7 Eos % (Auto) 1.1 L Baso % (Auto) 0.3 Neut # (Auto) 7300 H Lymph # (Auto) 1400 [place] # (Auto) 700 Eos # (Auto) 100 Baso # (Auto) 0 Sodium 135 L Potassium 4.2 Chloride 100 Carbon Dioxide 29 BUN 15 Creatinine 0.92 Estimated GFR > 60 BUN/Creatinine Ratio 16.3 Glucose 103 H Lactate 0.6 L Calcium 8.9 Total Bilirubin 0.4 AST 15 ALT 22 Alkaline Phosphatase 61 Total Protein 6.5 Albumin 3.9 Globulin 2.6 Albumin/Globulin Ratio 1.5 Procalcitonin 0.05 Assessment & Plan Assessment & Plan narrative: #L sided facial cellulitis and abscess extensive and resistant to multiple courses of antibiotics still getting worse needs I&D will admit for pain control and attempt I&D with ENT in a.m. #MDD stable on home meds, continue, denies SI/HI. #ADHD hold stimulants while inpatient for now dispo: admit obs MDM: Benji Miller [phone] diet: general allergies: none code: full PCP: Kassie
[2022-08-03] MEDS: IBUPROFEN 600 MG TABLET PO ×2 (13:51→18:21)
[2022-08-03] MEDS: ACETAMINOPHEN 325 MG TABLET 650 MG PO (13:51)
[2022-08-03] MEDS: HYDROCODONE/ACET 5/325 TABLET 1 TAB PO (19:48)
[2022-08-03] MEDS: buPROPion SR 150 MG TAB PO (21:07)
[2022-08-03] MEDS: TRAZODONE 50 MG TABLET PO (21:07)
[2022-08-04 04:00] VITALS: BP 101/67; PULSE 85; RESP 17; TEMP 36.4; O2SAT 99
[2022-08-04] MEDS: IBUPROFEN 600 MG TABLET PO ×3 (04:47→19:40)
[2022-08-04 05:02] LABS: Add Manual Diff / Slide Review NO; Basophils Absolute Auto 0 /uL (0-100); Basophils Percent Auto 0.4 % (0-2); Eosinophils Absolute Auto 200 /uL (0-450); Eosinophils Percent Auto 2.5 % (2-4); Hematocrit 36.6 % (36-46); Hemoglobin 12.7 g/dL (12.0-16.0); Lymphocytes Absolute Auto 2100 /uL (1100-4500); Lymphocytes Percent Auto 24.7 % (25-40); Mean Corpuscular HGB Conc 34.7 % (30-36); Mean Corpuscular Hemoglobin 31.4 PG (26-34); Mean Corpuscular Volume 90.5 fL (80-100); Monocytes Absolute Auto 500 /uL (0-900); Monocytes Percent Auto 6.4 % (3-14); Neutrophils Absolute Auto 5700 /uL (1500-7000); Platelet Count 172 X10^3/uL (150-400); Red Blood Cell Count 4.05 X10^6/uL (4.0-5.2); Red Cell Distribution Width 13.3 % (11.6-14.8); White Blood Cell Count 8.6 X10^3/uL (4.5-11.0)
--- NOTE | 2022-08-04 08:30 | PM.PN.1 ---
Subjective Subjective Date Patient Seen: 08/04/22 Time Patient Seen: 08:30 Interval history: Patient seen in follow-up of cellulitis abscess left face. Patient's pain is improved still needing pain control. Has been draining most of the night. No other significant change. Exam Vital Signs (past 8 hours): - 08/04/22 04:00 Temperature 97.5 F L Pulse Rate 85 Respiratory Rate 17 Blood Pressure 101/67 Pulse Oximetry 99 Oxygen Flow Rate 0 Oxygen Delivery Method Room Air Oxygen Flow Rate 0 Narrative Exam Narrative: Patient alert mildly less fatigued. Patient has erythema around her occiput and fluctuant mass 10 cm which is definitely smaller than when I saw the last time. Which was Sunday. Much more soft. But moderate amount still expressed. No maxillary adenopathy. No cervical adenopathy. Lungs are clear heart is regular rate and rhythm Objective Labs 08/04/22 04:40 08/03/22 07:37 Labs: Laboratory Results - last 24 hr 08/04/22 04:40 WBC 8.6 RBC 4.05 Hgb 12.7 Hct 36.6 MCV 90.5 MCH 31.4 MCHC 34.7 RDW 13.3 Plt Count 172 Neut % (Auto) 66.0 Lymph % (Auto) 24.7 L [place] % (Auto) 6.4 Eos % (Auto) 2.5 Baso % (Auto) 0.4 Neut # (Auto) 5700 Lymph # (Auto) 2100 [place] # (Auto) 500 Eos # (Auto) 200 Baso # (Auto) 0 PFSH Social History household members: family Smoking Status: Never smoker Assessment & Plan Assessment & Plan narrative: Cellulitis with abscess left face. Patient has much more erythema around her lower high orbit than she had previously but certainly less impressive swelling secondary to it slowly draining. Apparently ENT has been consulted I still think it needs to be more definitively drained. But will see what they recommend. Continue vanco for now. Certainly high-risk since it took so long by hopefully once drainage is completely done most of the issue will be dealt with. Was hoping a culture was done of the abscess drainage but none was done. She had been on antibiotics variable type for the last 7 days unlikely positive but still would like to have seen that. Depression. Stable. Continue usual meds. ADD. Doing well. Restart medicines as outpatient. Disposition. Hopefully will be able to switch to orals tomorrow on discharge if ENT sees today. And drainage occurs. Or whatever their recommendation is. She understands questions answered 45 minutes spent in evaluation, chart review, discussion with nurse, discussion with patient, dictation.
[2022-08-04] MEDS: ESCITALOPRAM 10 MG TABLET 40 MG PO (09:02)
[2022-08-04] MEDS: buPROPion SR 150 MG TAB PO ×2 (09:03→20:58)
--- NOTE | 2022-08-04 11:50 | CM.DANOTE ---
DCP: Chart review for case, met with patient at bedside, they agree to case management assessment. Completed DCP assessment based on information available. Patient is a 37 year old presented to ER by private auto admitted to care of hospitalist team. PCP is Trevor Fernando Payor: TERRY Murguia CC: Admitted for facial cellulitis. 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 P: Ongoing IV Antibiotics, awaiting ENT consult. Michelle Woods RN, CM Discharge Planning/Care Management CM Discharge Assessment Start: 08/04/22 11:47 Freq: Status: Active Protocol: Document 08/04/22 11:48 BQ (Rec: 08/04/22 11:50 BQ [id number]) Discharge Planning Assessment Assigned Channel Specialist Michelle Woods RN, CM Advance Directives? No History Provided By Patient Has Patient been admitted in last 30 No days? Prior Living Arrangements House Household Members family,children Type of transporation used prior to Drives own vehicle admit Independent with ADL's Yes Is patient alert and oriented? Yes Caregiver for Another Yes: Children Barriers to Discharge No Discharge Plan Home Referrals Initiated None needed Whiteboard Updated in Patient Room with Yes name and ext. # of Channel Specialist Review Status In Process Next Review Type Continued Stay Review
[2022-08-04] MEDS: DEXTROAMPHETAMINE AMPHETAMINE 15 MG 30 EACH PO (12:01)
[2022-08-04] MEDS: HYDROCODONE/ACET 5/325 TABLET 1 TAB PO ×3 (12:13→20:59)
[2022-08-04] MEDS: VANCOMYCIN 1,500 MG/300 ML PIGGYBACK 200 MG IV ×2 (12:13→23:55)
--- NOTE | 2022-08-04 12:40 | PC.NURSE ---
Addendum entered by Pallavi Perdue R.N. 08/04/22 12:55: Pt recieved norco and adderall and then as preparing to start vacomycin infusion IV line was flusheded. After flush pt had single episode of feeling off. No dizziness, No n/v, no rash, no itching, just states feeling strange, lasting less than 10 minutes, then resolved. Original Note: Pt had single episode of
[2022-08-04 13:00] VITALS: BP 127/68; PULSE 79; RESP 17; TEMP 36.3; O2SAT 100
[2022-08-04 20:00] VITALS: BP 116/68; PULSE 78; RESP 20; TEMP 36.8; O2SAT 98
[2022-08-04] MEDS: TRAZODONE 50 MG TABLET PO (20:58)
[2022-08-05] VITALS: BP 108/61; PULSE 77; RESP 19; TEMP 36.3; O2SAT 97
[2022-08-05 05:36] LABS: Add Manual Diff / Slide Review NO; Basophils Absolute Auto 0 /uL (0-100); Basophils Percent Auto 0.2 % (0-2); Eosinophils Absolute Auto 300 /uL (0-450); Eosinophils Percent Auto 3.9 % (2-4); Hematocrit 36.7 % (36-46); Hemoglobin 12.5 g/dL (12.0-16.0); Lymphocytes Absolute Auto 2400 /uL (1100-4500); Mean Corpuscular HGB Conc 33.9 % (30-36); Mean Corpuscular Hemoglobin 30.7 PG (26-34); Mean Corpuscular Volume 90.6 fL (80-100); Monocytes Absolute Auto 600 /uL (0-900); Monocytes Percent Auto 7.6 % (3-14); Neutrophils Absolute Auto 5000 /uL (1500-7000); Neutrophils Percent Auto 59.3 % (50-75); Platelet Count 183 X10^3/uL (150-400); Red Blood Cell Count 4.05 X10^6/uL (4.0-5.2); Red Cell Distribution Width 13.2 % (11.6-14.8); White Blood Cell Count 8.4 X10^3/uL (4.5-11.0)
[2022-08-05] MEDS: HYDROCODONE/ACET 5/325 TABLET 1 TAB PO (08:20)
[2022-08-05 08:58] VITALS: BP 110/66; PULSE 70; RESP 17; TEMP 36.6; O2SAT 98
[2022-08-05] MEDS: DEXTROAMPHETAMINE AMPHETAMINE 15 MG 30 EACH PO (09:04)
[2022-08-05] MEDS: ESCITALOPRAM 10 MG TABLET 40 MG PO (09:04)
[2022-08-05] MEDS: buPROPion SR 150 MG TAB PO (09:04)
--- NOTE | 2022-08-05 10:38 | P.DS_ITS ---
History of Present Illness History of Present Illness Date Patient Seen: 08/05/22 Time Patient Seen: 10:38 Chief complaint: infection in left side of mouth swollen Narrative: Pt presents with acute L cheek cellulitis/ asbscess.? Started last Sunday and has now failed treatment attempts with augmentin bactrim and rocephin - pain about 5/10 with ibuprofen/tylenols - discussed with Dr. Mayorga who will attempt a partial I&D today for comfort - will plan on ENT Dr. Blanc coming in tomorrow to take a look possibly place drain.? Pt reports normal appetite normal ever thing no airway issues. Discharge Providers Provider Date of admission: 08/03/22 09:28 Discharge Date: 08/05/22 Primary care physician: Trevor Fernando MD Consults: 08/03/22 11:06 Consult to Physician Routine Comment: Consulting Provider: Dayne Blanc Reason for consultation: facial abscess Has provider been notified: Yes Discharge provider: Valarie Feldman MD Summary Hospital Course Discharge Diagnosis: Facial abscess and cellulitis ADHD Depression Hospital Course: The pt presnted with facial abscess and cellulitis, failing outpatient therapy. She underwent limited I&D in the ED without complications. She was initiated on Vancomycin. The abscess continued to drain throughout her hospitalization. ENT was contacted, and recommended outpatient f/u as long as the area continued to improve in appearance. The day of discharge, the swelling and erythema was significantly improved. The area was no longer draining significantly. The pt will discharge home to continue Bactrim BID. She will continue with warm compresses over the area. She will f/u with ENT on 08/07/22. Status at Discharge Cognitive/behavioral status at discharge: oriented Functional status at discharge: independent ambulation Exam Vital Signs (past 8 hours): - 08/05/22 07:00 08/05/22 08:58 Temperature 98 F Pulse Rate 70 Respiratory Rate 17 Blood Pressure 110/66 Pulse Oximetry 98 Oxygen Delivery Method Room Air Oxygen Flow Rate 0 Oxygen Delivery Method Room Air Oxygen Flow Rate 0 Narrative Exam Narrative: Gen: NAD, sitting comfortably in chair, speaking easily HEENT: Localized erythematous area approximately 5cm diameter with distinct borders on left cheek, periphery firm to touch, central area with looser skin but no over fluctuance, unable to express anything, central area scabbing sl ightly Neck: no LAD Objective Labs 08/05/22 04:25 08/03/22 07:37 Labs: Laboratory Results - last 24 hr 08/05/22 04:25 WBC 8.4 RBC 4.05 Hgb 12.5 Hct 36.7 MCV 90.6 MCH 30.7 MCHC 33.9 RDW 13.2 Plt Count 183 Neut % (Auto) 59.3 Lymph % (Auto) 29.0 [place] % (Auto) 7.6 Eos % (Auto) 3.9 Baso % (Auto) 0.2 Neut # (Auto) 5000 Lymph # (Auto) 2400 [place] # (Auto) 600 Eos # (Auto) 300 Baso # (Auto) 0 PFSH Social History household members: family and children Smoking Status: Never smoker Discharge Plan Discharge Plan Patient Disposition: Home Provider Discharge Comment: Please continue Bactrim you have at home already twice/day until seen by ENT Contact the ENT office on Sunday to schedule an appointment You can continue to do warm compresses on the area multiple times/day, and push gently to express any fluid/pus Discharge orders & Medications Prescriptions: Continued sulfamethoxazole-trimethoprim 800-160 mg tablet 1 tab PO BID Qty: 10 0RF prednisone 5 mg tablet See Rx Instructions PO .COMPLEX Qty: 36 0RF Rx Instructions: prednisone 5 mg: take 8 tablets (40 mg) on Day 1; 7 tablets (35 mg) on Day 2; then decrease by 1 tablet every day until finished. Take in the morning with food. bupropion HCl 150 mg tablet sustained-release 12 hr 150 mg PO BID Patient Comments: Take 1 tablet by mouth twice a day dextroamphetamine-amphetamine [Adderall XR] 30 mg capsule,extended release 24hr 30 mg PO DAILY Patient Comments: Take 1 capsule by mouth once a day escitalopram oxalate 20 mg tablet 40 mg PO DAILY trazodone 50 mg tablet 50 mg PO BEDTIME Patient Comments: TAKE ONE TABLET BY MOUTH EVERY NIGHT NEEDED Follow up/Referrals: Trevor Fernando MD [Primary Care Provider] - Visit Report/Discharge Packet Stand Alone Forms: Patient Portal/API, Stroke Signs & Symptoms Discharge Data Primary Care Provider: Trevor Fernando Discharges patient from system. Discharge Date/Time: 08/05/22 12:05
== END 2022-08-05 12:05 | disposition home or self-care (01) | DRG 603 ==
LOC: ED 07:59 → AC 09:29
PROVIDERS: Admitting Provider Family Medicine; Emergency Provider Emergency Medicine; Family Provider Family Medicine; PCP Family Medicine; Referring Provider Emergency Medicine; Visit Provider Family Medicine
DX: L03.211 Cellulitis of face (principal); L02.01 Cutaneous abscess of face; F32.9 Major depressive disorder, single episode, unspecified; Z20.822 Contact with and (suspected) exposure to COVID-19; Z23 Encounter for immunization; R22.0 Localized swelling, mass and lump, head
CPT/HCPCS: 10060; 36415; 70491; 76536; 80048; 80053; 81003; 81025; 83605; 84145; 85025; 85651; 86140; 87040; 90471; 96365; 96366; 96367; 96375; 99238; 99285; 90715; J1885; J2270; J2405; J2543; Q9967

== ENCOUNTER → 2022-08-24 12:35 | Outpatient (CLI) | payer OTHER, SELFPAY ==
[2022-08-03 11:10] VITALS: BMI 37.7
[2022-08-24 15:38] LABS: Hepatitis B Surface Antigen NEGATIVE s/c (NEGATIVE)
[2022-08-24 15:57] LABS: HIV 1 & 2 Ab/Ag 4th Gen Combo NEGATIVE (NEGATIVE); Hep C Virus Ab w/Reflex Quant NEGATIVE s/c (NEGATIVE)
[2022-08-25 03:43] LABS: RPR Screen Non Reactive (Non Reactive)
== END ==
PROVIDERS: Family Provider Family Medicine; PCP Family Medicine; Referring Provider Physician Assistant Medical; Visit Provider Physician Assistant Medical
DX: Z11.3 Encounter for screening for infections with a predominantly sexual mode of transmission (principal)
CPT/HCPCS: 36415; 86592; 86803; 87340; 87389

== ENCOUNTER → 2022-10-19 13:06 | Outpatient (CLI) | payer OTHER, SELFPAY ==
[2022-08-03 11:10] VITALS: BMI 37.7
[2022-10-19 16:04] LABS: Urine N gonorrhoeae NOT DETECTED
[2022-10-19 16:42] LABS: Urine Chlamydia NOT DETECTED
== END ==
PROVIDERS: Family Provider Family Medicine; PCP Family Medicine; Referring Provider Physician Assistant Medical; Visit Provider Physician Assistant Medical
DX: Z11.3 Encounter for screening for infections with a predominantly sexual mode of transmission (principal)
CPT/HCPCS: 87491; 87591

== ENCOUNTER → 2023-09-07 11:38 | Outpatient (CLI) | payer OTHER, SELFPAY ==
[2022-08-03 11:10] VITALS: BMI 37.7
[2023-09-07 15:40] LABS: Urine N gonorrhoeae NOT DETECTED
[2023-09-07 15:57] LABS: Urine Chlamydia NOT DETECTED
[2023-09-07 20:44] LABS: Hepatitis B Surface Antigen NEGATIVE s/c (NEGATIVE)
[2023-09-07 20:58] LABS: HIV 1 & 2 Ab/Ag 4th Gen Combo NEGATIVE (NEGATIVE); Hep C Virus Ab w/Reflex Quant NEGATIVE s/c (NEGATIVE)
[2023-09-08 08:09] LABS: RPR Screen Non Reactive (Non Reactive)
== END ==
PROVIDERS: Family Provider Family Medicine; PCP Family Medicine; Referring Provider Physician Assistant Medical; Visit Provider Physician Assistant Medical
DX: Z11.3 Encounter for screening for infections with a predominantly sexual mode of transmission (principal)
CPT/HCPCS: 36415; 86592; 86803; 87340; 87389; 87491; 87591